=== PATIENT | male | born 1945 | race Caucasian/White ===

== ENCOUNTER 2021-02-16 11:26 | Inpatient (IN) ==
[2021-02-16 12:06] LABS: Basophils % 0.2 %; Hematocrit 44.9 % (37.5-50.1); Hemoglobin 15.1 g/dL (12.9-16.9); Immature Granulocytes % 0.7 % (0-4); Lymphocytes # 0.9 K/mcL (0.6-4.6); Lymphocytes % 14.9 %; Mean Corpuscular HGB Conc 33.6 g/dL (31.6-35.5); Mean Corpuscular Hemoglobin 32.5 pg (28.0-33.3); Mean Corpuscular Volume 96.6 fL (83.0-100.0); Mean Platelet Volume 9.9 fL (9.4-12.4); Monocytes # 0.7 K/mcL (0.0-1.3); Monocytes % 12.1 %; Neutrophils # 4.1 K/mcL (1.6-8.9); Platelet Count 157 K/mcL (140-400); Red Blood Count 4.65 M/mcL (4.19-5.50); Red Cell Distribution Width 12.2 % (11.5-14.5); Segmented Neutrophils % 72.1 %; White Blood Count 5.7 K/mcL (4.3-11.1)
[2021-02-16 12:29] LABS: Alanine Aminotransferase 41 Units/L (7-52); Albumin 3.4 g/dL (3.5-5.7); Albumin/Globulin Ratio 1.2 (1.1-2.2); Alkaline Phosphatase 65 Units/L (34-104); Aspartate Amino Transferase 51 Units/L (13-39); BUN/Creatinine Ratio 24 (6-26); Bilirubin,Direct 0.2 mg/dL (0.0-0.2); Bilirubin,Indirect 0.4 mg/dL (0.0-1.0); Bilirubin,Total 0.6 mg/dL (0.3-1.0); Blood Urea Nitrogen 29 mg/dL (8-23); C-Reactive Protein 55 mg/L (Less than 10); Calcium 8.7 mg/dL (8.6-10.3); Carbon Dioxide 30 mEq/L (23-29); Chloride 102 mEq/L (98-107); Globulin 2.9 g/dL (2.4-3.5); Glucose 93 mg/dL (70-105); Lactate Dehydrogenase 230 Units/L (140-271); Magnesium 1.9 mg/dL (1.6-2.6); Osmolality,Calculated 294 (280-300); Phosphorous 3.4 mg/dL (2.7-4.5); Potassium 3.6 mEq/L (3.5-5.1); Sodium 139 mEq/L (136-145); Total Protein 6.3 g/dL (6.4-8.9); eGFR For African Americans > 60 (> 60); eGFR For Non-African Americans 58 (> 60)
[2021-02-16 12:31] LABS: Troponin I < 0.03 ng/mL (< 0.04)
[2021-02-16] MEDS ORDERED: Piperacillin/Tazobactam 3.375 GM in 0.9 % Sodium Chloride Mini Bag 100 ML IVPB ONE (13:08)
[2021-02-16] MEDS ORDERED: Vancomycin 1,250 MG/262.5 ML IV.SOLN IVPB ONE (13:08)
[2021-02-16] MEDS ORDERED: Ondansetron 4 MG/2 ML VIAL IVP PRN (13:24)
[2021-02-16] MEDS ORDERED: Naloxone 0.4 MG/ML INJ IVP PRN (13:24)
[2021-02-16] MEDS ORDERED: Ipratropium Neb 0.5 MG NEBULIZER IH PRN (13:26)
[2021-02-16] MEDS ORDERED: Albuterol 2.5 MG/3 ML NEBULIZER IH PRN (13:26)
[2021-02-16 13:33] LABS: Ferritin > 1500 ng/mL (20-250)
[2021-02-16] MEDS ORDERED: Ringers Solution, Lactated 500 ML IVC SCH (14:15)
[2021-02-16] MEDS ORDERED: Remdesivir 200 MG in 0.9 % Sodium Chloride 100 ML IVPB ONE (15:00)
[2021-02-16 16:33] LABS: ABG Base Excess 3 mEq/L (-2 to 3); ABG HCO3 28 mEq/L (21-27); ABG Oxygen Saturation 93 % (95-98); ABG PCO2 40 mmHg (35-45); ABG PH 7.45 pH Units (7.32-7.45); ABG PO2 66 mmHg (85-104); ABG TCO2 29 mEq/L (20-26)
[2021-02-16] MEDS ORDERED: *HR* Heparin 5,000 UNIT/ML VIAL SQ SCH (18:00)
[2021-02-16] MEDS ORDERED: Doxycycline 100 MG in 0.9 % Sodium Chloride Mini Bag 100 ML IVPB SCH (18:00)
[2021-02-17] MEDS: *HR* Enoxaparin 40 MG/0.4 ML SYRINGE SQ SCH (05:18)
[2021-02-17 06:57] LABS: Basophils % 0.1 %; Eosinophils % 0.4 %; Hematocrit 41.4 % (37.5-50.1); Hemoglobin 14.5 g/dL (12.9-16.9); Immature Granulocytes % 0.8 % (0-4); Lymphocytes % 12.9 %; Mean Corpuscular Hemoglobin 33.1 pg (28.0-33.3); Mean Corpuscular Volume 94.5 fL (83.0-100.0); Mean Platelet Volume 10.4 fL (9.4-12.4); Monocytes # 0.8 K/mcL (0.0-1.3); Monocytes % 11.3 %; Neutrophils # 5.5 K/mcL (1.6-8.9); Platelet Count 173 K/mcL (140-400); Red Blood Count 4.38 M/mcL (4.19-5.50); Red Cell Distribution Width 11.9 % (11.5-14.5); Segmented Neutrophils % 74.5 %; White Blood Count 7.4 K/mcL (4.3-11.1)
[2021-02-17 07:09] LABS: Alanine Aminotransferase 36 Units/L (7-52); Albumin 3.1 g/dL (3.5-5.7); Albumin/Globulin Ratio 1.2 (1.1-2.2); Alkaline Phosphatase 60 Units/L (34-104); Aspartate Amino Transferase 42 Units/L (13-39); Bilirubin,Direct 0.1 mg/dL (0.0-0.2); Bilirubin,Indirect 0.5 mg/dL (0.0-1.0); Bilirubin,Total 0.6 mg/dL (0.3-1.0); Globulin 2.6 g/dL (2.4-3.5); Total Protein 5.7 g/dL (6.4-8.9)
[2021-02-17 08:18] LABS: BUN/Creatinine Ratio 30 (6-26); Blood Urea Nitrogen 26 mg/dL (8-23); Calcium 8.4 mg/dL (8.6-10.3); Carbon Dioxide 29 mEq/L (23-29); Chloride 102 mEq/L (98-107); Glucose 90 mg/dL (70-105); Osmolality,Calculated 292 (280-300); Potassium 3.6 mEq/L (3.5-5.1); Sodium 139 mEq/L (136-145); eGFR For African Americans > 60 (> 60); eGFR For Non-African Americans > 60 (> 60)
[2021-02-17] MEDS ORDERED: Isovue-370 500 ML BOTTLE IVP ONE (09:19)
[2021-02-17 13:04] LABS: C-Reactive Protein 44 mg/L (Less than 10)
[2021-02-17] MEDS: risperiDONE 0.25 MG TABLET PO SCH ×2 (13:06)
[2021-02-17] MEDS: Ascorbic Acid 500 MG TABLET PO SCH (13:06)
[2021-02-17] MEDS: Furosemide 20 MG/2 ML VIAL IVP SCH (13:07)
[2021-02-17 14:30] LABS: Bilirubin,Urine Negative (Negative); Blood,Urine Negative (Negative); Clarity,Urine Clear (Clear); Color,Urine Light-Yellow (Yellow); Glucose,Urine (UA) Normal (Normal); Ketones,Urine Trace mg/dL (Negative); Leukocyte Esterase,Urine Negative (Negative); Nitrite,Urine Negative (Negative); Protein,Urine Trace mg/dL (Neg-Trace); Specific Gravity,Urine > 1.030 (1.010-1.025); Urobilinogen,Urine Normal (Normal)
[2021-02-17] MEDS: Remdesivir 100 MG in 0.9 % Sodium Chloride 100 ML IVPB SCH (16:14)
[2021-02-17] MEDS: Valproic Acid 250 MG CAPSULE PO SCH (20:20)
[2021-02-18] MEDS: *HR* Enoxaparin 40 MG/0.4 ML SYRINGE SQ SCH (06:08)
[2021-02-18 08:54] LABS: Basophils % 0.5 %; Eosinophils % 0.5 %; Hematocrit 43.1 % (37.5-50.1); Hemoglobin 14.8 g/dL (12.9-16.9); Immature Granulocytes % 1.1 % (0-4); Lymphocytes # 0.9 K/mcL (0.6-4.6); Lymphocytes % 14.4 %; Mean Corpuscular HGB Conc 34.3 g/dL (31.6-35.5); Mean Corpuscular Hemoglobin 32.2 pg (28.0-33.3); Mean Corpuscular Volume 93.7 fL (83.0-100.0); Mean Platelet Volume 10.2 fL (9.4-12.4); Monocytes # 0.8 K/mcL (0.0-1.3); Monocytes % 12.4 %; Neutrophils # 4.4 K/mcL (1.6-8.9); Platelet Count 168 K/mcL (140-400); Segmented Neutrophils % 71.1 %; White Blood Count 6.1 K/mcL (4.3-11.1)
[2021-02-18] MEDS: Valproic Acid 250 MG CAPSULE PO SCH ×2 (09:20→21:15)
[2021-02-18] MEDS: risperiDONE 0.25 MG TABLET PO SCH ×2 (09:20)
[2021-02-18] MEDS: Ascorbic Acid 500 MG TABLET PO SCH (09:21)
[2021-02-18] MEDS: Furosemide 20 MG/2 ML VIAL IVP SCH (09:21)
[2021-02-18] MEDS: allopurinoL 300 MG TABLET PO SCH (09:42)
[2021-02-18 11:28] LABS: Alanine Aminotransferase 40 Units/L (7-52); Albumin/Globulin Ratio 1.1 (1.1-2.2); Alkaline Phosphatase 64 Units/L (34-104); Aspartate Amino Transferase 43 Units/L (13-39); BUN/Creatinine Ratio 31 (6-26); Bilirubin,Total 0.7 mg/dL (0.3-1.0); Blood Urea Nitrogen 27 mg/dL (8-23); Calcium 8.4 mg/dL (8.6-10.3); Carbon Dioxide 24 mEq/L (23-29); Chloride 102 mEq/L (98-107); Globulin 2.7 g/dL (2.4-3.5); Glucose 94 mg/dL (70-105); Lactate Dehydrogenase 225 Units/L (140-271); Osmolality,Calculated 295 (280-300); Potassium 3.1 mEq/L (3.5-5.1); Sodium 140 mEq/L (136-145); Total Protein 5.7 g/dL (6.4-8.9); eGFR For African Americans > 60 (> 60); eGFR For Non-African Americans > 60 (> 60)
[2021-02-18] MEDS ORDERED: Haloperidol Lactate 5 MG/ML VIAL IVP ONE (14:53)
[2021-02-18] MEDS ORDERED: Dexamethasone Sodium Phos/PF 10 MG/ML VIAL IVP ONE (15:01)
[2021-02-18] MEDS: Remdesivir 100 MG in 0.9 % Sodium Chloride 100 ML IVPB SCH (15:19)
[2021-02-18 15:22] LABS: Ferritin 1434 ng/mL (20-250)
[2021-02-19 02:31] LABS: Basophils % 0.3 %; Hematocrit 42.9 % (37.5-50.1); Hemoglobin 14.8 g/dL (12.9-16.9); Immature Granulocytes % 1.1 % (0-4); Lymphocytes # 0.6 K/mcL (0.6-4.6); Lymphocytes % 8.3 %; Mean Corpuscular HGB Conc 34.5 g/dL (31.6-35.5); Mean Corpuscular Hemoglobin 32.2 pg (28.0-33.3); Mean Corpuscular Volume 93.5 fL (83.0-100.0); Mean Platelet Volume 10.6 fL (9.4-12.4); Monocytes # 0.6 K/mcL (0.0-1.3); Monocytes % 8.8 %; Neutrophils # 5.9 K/mcL (1.6-8.9); Platelet Count 212 K/mcL (140-400); Red Blood Count 4.59 M/mcL (4.19-5.50); Red Cell Distribution Width 11.9 % (11.5-14.5); Segmented Neutrophils % 81.5 %; White Blood Count 7.2 K/mcL (4.3-11.1)
[2021-02-19 02:51] LABS: Alanine Aminotransferase 48 Units/L (7-52); Albumin 3.1 g/dL (3.5-5.7); Albumin/Globulin Ratio 1.1 (1.1-2.2); Alkaline Phosphatase 67 Units/L (34-104); Aspartate Amino Transferase 42 Units/L (13-39); BUN/Creatinine Ratio 34 (6-26); Bilirubin,Total 0.6 mg/dL (0.3-1.0); Blood Urea Nitrogen 32 mg/dL (8-23); Calcium 8.5 mg/dL (8.6-10.3); Carbon Dioxide 28 mEq/L (23-29); Chloride 102 mEq/L (98-107); Globulin 2.8 g/dL (2.4-3.5); Glucose 123 mg/dL (70-105); Osmolality,Calculated 296 (280-300); Potassium 3.5 mEq/L (3.5-5.1); Sodium 139 mEq/L (136-145); Total Protein 5.9 g/dL (6.4-8.9); eGFR For African Americans > 60 (> 60); eGFR For Non-African Americans > 60 (> 60)
[2021-02-19] MEDS: *HR* Enoxaparin 40 MG/0.4 ML SYRINGE SQ SCH (05:46)
[2021-02-19] MEDS: Valproic Acid 250 MG CAPSULE PO SCH ×2 (08:22→21:57)
[2021-02-19] MEDS: Ascorbic Acid 500 MG TABLET PO SCH (08:23)
[2021-02-19] MEDS: risperiDONE 0.25 MG TABLET PO SCH ×2 (08:23)
[2021-02-19] MEDS: allopurinoL 300 MG TABLET PO SCH (08:23)
[2021-02-19] MEDS: Dexamethasone Sodium Phos/PF 10 MG/ML VIAL IVP SCH (08:29)
[2021-02-19] MEDS: Furosemide 20 MG/2 ML VIAL IVP SCH (08:30)
[2021-02-19] MEDS: Remdesivir 100 MG in 0.9 % Sodium Chloride 100 ML IVPB SCH (15:18)
[2021-02-20 03:21] LABS: Basophils % 0.2 %; Eosinophils % 0.2 %; Hematocrit 42.4 % (37.5-50.1); Hemoglobin 14.5 g/dL (12.9-16.9); Immature Granulocytes % 1.2 % (0-4); Lymphocytes % 11.5 %; Mean Corpuscular HGB Conc 34.2 g/dL (31.6-35.5); Mean Corpuscular Hemoglobin 32.2 pg (28.0-33.3); Mean Platelet Volume 10.3 fL (9.4-12.4); Monocytes # 0.7 K/mcL (0.0-1.3); Monocytes % 8.2 %; Neutrophils # 6.5 K/mcL (1.6-8.9); Platelet Count 219 K/mcL (140-400); Red Blood Count 4.51 M/mcL (4.19-5.50); Red Cell Distribution Width 11.9 % (11.5-14.5); Segmented Neutrophils % 78.7 %; White Blood Count 8.3 K/mcL (4.3-11.1)
[2021-02-20 03:38] LABS: BUN/Creatinine Ratio 33 (6-26); Blood Urea Nitrogen 33 mg/dL (8-23); Calcium 8.6 mg/dL (8.6-10.3); Carbon Dioxide 32 mEq/L (23-29); Chloride 101 mEq/L (98-107); Glucose 98 mg/dL (70-105); Osmolality,Calculated 299 (280-300); Potassium 2.9 mEq/L (3.5-5.1); Sodium 141 mEq/L (136-145); eGFR For African Americans > 60 (> 60); eGFR For Non-African Americans > 60 (> 60)
[2021-02-20] MEDS ORDERED: Potassium Chloride 40 MEQ, Lidocaine 1% 2 ML in 0.9 % Sodium Chloride 500 ML IVPB ONE (05:15)
[2021-02-20] MEDS: *HR* Enoxaparin 40 MG/0.4 ML SYRINGE SQ SCH (06:21)
[2021-02-20] MEDS: Furosemide 20 MG/2 ML VIAL IVP SCH (09:04)
[2021-02-20] MEDS: Dexamethasone Sodium Phos/PF 10 MG/ML VIAL IVP SCH (09:04)
[2021-02-20] MEDS: risperiDONE 0.25 MG TABLET PO SCH ×2 (09:05)
[2021-02-20] MEDS: allopurinoL 300 MG TABLET PO SCH (09:06)
[2021-02-20] MEDS: Ascorbic Acid 500 MG TABLET PO SCH (09:06)
[2021-02-20] MEDS: Valproic Acid 250 MG CAPSULE PO SCH ×2 (09:06→19:59)
[2021-02-20 15:58] LABS: Alanine Aminotransferase 48 Units/L (7-52); Albumin 3.1 g/dL (3.5-5.7); Albumin/Globulin Ratio 1.1 (1.1-2.2); Alkaline Phosphatase 70 Units/L (34-104); Aspartate Amino Transferase 46 Units/L (13-39); Bilirubin,Direct 0.2 mg/dL (0.0-0.2); Bilirubin,Indirect 0.4 mg/dL (0.0-1.0); Bilirubin,Total 0.6 mg/dL (0.3-1.0); Globulin 2.9 g/dL (2.4-3.5)
[2021-02-20] MEDS: Remdesivir 100 MG in 0.9 % Sodium Chloride 100 ML IVPB SCH (16:00)
[2021-02-21 05:24] VITALS: BP 106/87; TEMP 98.1
[2021-02-21] MEDS: *HR* Enoxaparin 40 MG/0.4 ML SYRINGE SQ SCH (05:31)
[2021-02-21 06:16] LABS: Basophils % 0.3 %; Eosinophils # 0.1 K/mcL (0.0-0.6); Eosinophils % 0.9 %; Hematocrit 43.5 % (37.5-50.1); Hemoglobin 14.7 g/dL (12.9-16.9); Lymphocytes # 0.8 K/mcL (0.6-4.6); Lymphocytes % 10.2 %; Mean Corpuscular HGB Conc 33.8 g/dL (31.6-35.5); Mean Corpuscular Hemoglobin 32.5 pg (28.0-33.3); Mean Platelet Volume 10.4 fL (9.4-12.4); Monocytes # 0.6 K/mcL (0.0-1.3); Monocytes % 7.9 %; Neutrophils # 6.3 K/mcL (1.6-8.9); Platelet Count 225 K/mcL (140-400); Red Blood Count 4.53 M/mcL (4.19-5.50); Segmented Neutrophils % 79.7 %
[2021-02-21 06:38] LABS: BUN/Creatinine Ratio 33 (6-26); Blood Urea Nitrogen 33 mg/dL (8-23); Calcium 8.8 mg/dL (8.6-10.3); Carbon Dioxide 30 mEq/L (23-29); Chloride 105 mEq/L (98-107); Glucose 94 mg/dL (70-105); Osmolality,Calculated 303 (280-300); Potassium 3.4 mEq/L (3.5-5.1); Sodium 143 mEq/L (136-145); eGFR For African Americans > 60 (> 60); eGFR For Non-African Americans > 60 (> 60)
[2021-02-21] MEDS: Furosemide 20 MG/2 ML VIAL IVP SCH (12:30)
[2021-02-21] MEDS: Dexamethasone Sodium Phos/PF 10 MG/ML VIAL IVP SCH (12:30)
[2021-02-21] MEDS: Valproic Acid 250 MG CAPSULE PO SCH (12:30)
[2021-02-21] MEDS: Ascorbic Acid 500 MG TABLET PO SCH (12:31)
[2021-02-21] MEDS: risperiDONE 0.25 MG TABLET PO SCH ×2 (12:31)
[2021-02-21] MEDS: allopurinoL 300 MG TABLET PO SCH (12:31)
[2021-02-21 16:30] VITALS: PULSE 59; O2SAT 91
[2021-02-24 03:12] LABS: ABG Base Excess 4 mEq/L (-2 to 3); ABG HCO3 27 mEq/L (21-27); ABG Oxygen Saturation 86 % (95-98); ABG PCO2 34 mmHg (35-45); ABG PO2 46 mmHg (85-104); ABG TCO2 28 mEq/L (20-26)
== END 2021-02-21 17:04 | DRG 177 ==
LOC: 2NENU 11:26 → EMEROOARM 11:26 → 2NENU 14:59 → SUATTDRO 02-17 12:15
PROVIDERS: ADMIT Internal Medicine; ATTEND Internal Medicine

== ENCOUNTER 2021-02-24 02:30 | Observation (INO) ==
[2021-02-24 03:08] LABS: VBG HCO3 31 mEq/L (21-27); VBG PCO2 57 mmHg (41-51); VBG PH 7.35 pH Units (7.32-7.42); VBG PO2 24 mmHg (25-50)
[2021-02-24 03:11] LABS: Hematocrit 50.3 % (37.5-50.1); Hemoglobin 16.3 g/dL (12.9-16.9); Lymphocytes # 1.1 K/mcL (0.6-4.6); Lymphocytes % 12.1 %; Mean Corpuscular HGB Conc 32.4 g/dL (31.6-35.5); Mean Corpuscular Volume 98.8 fL (83.0-100.0); Mean Platelet Volume 10.1 fL (9.4-12.4); Neutrophils # 7.5 K/mcL (1.6-8.9); Platelet Count 275 K/mcL (140-400); Red Blood Count 5.09 M/mcL (4.19-5.50); Red Cell Distribution Width 12.4 % (11.5-14.5); Segmented Neutrophils % 79.8 %; White Blood Count 9.4 K/mcL (4.3-11.1)
[2021-02-24 03:12] LABS: Basophils % 0.2 %; Eosinophils # 0.1 K/mcL (0.0-0.6); Eosinophils % 1.4 %; Monocytes # 0.5 K/mcL (0.0-1.3); Monocytes % 5.5 %
[2021-02-24 03:30] LABS: BUN/Creatinine Ratio 23 (6-26); Blood Urea Nitrogen 26 mg/dL (8-23); Calcium 9.3 mg/dL (8.6-10.3); Carbon Dioxide 29 mEq/L (23-29); Chloride 106 mEq/L (98-107); Glucose 109 mg/dL (70-105); Osmolality,Calculated 307 (280-300); Potassium 3.8 mEq/L (3.5-5.1); Sodium 146 mEq/L (136-145); Troponin I < 0.03 ng/mL (< 0.04); eGFR For African Americans > 60 (> 60); eGFR For Non-African Americans > 60 (> 60)
[2021-02-24] MEDS ORDERED: 0.9 % Sodium Chloride 1,000 ML IV ONE (04:37)
[2021-02-24] MEDS ORDERED: cefTRIAXone 1,000 MG in Water for inj. (sterile) 10 ML IVP ONE (05:51)
[2021-02-24] MEDS ORDERED: Azithromycin 500 MG in 0.9 % Sodium Chloride 250 ML IVPB SCH (09:00)
[2021-02-24] MEDS ORDERED: Ondansetron 4 MG/2 ML VIAL IVP PRN (09:02)
[2021-02-24] MEDS ORDERED: Naloxone 0.4 MG/ML INJ IVP PRN (09:02)
[2021-02-24] MEDS ORDERED: Ipratropium Neb 0.5 MG NEBULIZER IH PRN (09:10)
[2021-02-24] MEDS ORDERED: Albuterol 2.5 MG/3 ML NEBULIZER IH PRN (09:10)
[2021-02-24] MEDS ORDERED: cefTRIAXone 1,000 MG in 0.9 % Sodium Chloride Mini Bag 100 ML IVPB SCH (11:00)
[2021-02-24] MEDS: 0.9 % Sodium Chloride 1,000 ML IVC SCH (11:19)
[2021-02-24] MEDS: *HR* Heparin 5,000 UNIT/ML VIAL SQ SCH ×3 (14:20→20:52)
[2021-02-24] MEDS: Valproic Acid 250 MG CAPSULE PO SCH (20:37)
[2021-02-25] MEDS: *HR* Heparin 5,000 UNIT/ML VIAL SQ SCH ×2 (05:55→16:26)
[2021-02-25 05:58] LABS: Basophils % 0.3 %; Eosinophils # 0.1 K/mcL (0.0-0.6); Hematocrit 41.3 % (37.5-50.1); Hemoglobin 14.1 g/dL (12.9-16.9); Immature Granulocytes % 0.7 % (0-4); Lymphocytes % 13.7 %; Mean Corpuscular HGB Conc 34.1 g/dL (31.6-35.5); Mean Corpuscular Hemoglobin 33.1 pg (28.0-33.3); Mean Corpuscular Volume 96.9 fL (83.0-100.0); Mean Platelet Volume 10.4 fL (9.4-12.4); Monocytes # 0.5 K/mcL (0.0-1.3); Monocytes % 7.4 %; Neutrophils # 5.5 K/mcL (1.6-8.9); Platelet Count 161 K/mcL (140-400); Red Blood Count 4.26 M/mcL (4.19-5.50); Red Cell Distribution Width 12.3 % (11.5-14.5); Segmented Neutrophils % 76.9 %; White Blood Count 7.2 K/mcL (4.3-11.1)
[2021-02-25] MEDS: 0.9 % Sodium Chloride 1,000 ML IVC SCH (05:59)
[2021-02-25 06:10] LABS: BUN/Creatinine Ratio 24 (6-26); Blood Urea Nitrogen 21 mg/dL (8-23); Calcium 8.5 mg/dL (8.6-10.3); Carbon Dioxide 28 mEq/L (23-29); Chloride 110 mEq/L (98-107); Glucose 87 mg/dL (70-105); Osmolality,Calculated 302 (280-300); Potassium 3.4 mEq/L (3.5-5.1); Sodium 145 mEq/L (136-145); eGFR For African Americans > 60 (> 60); eGFR For Non-African Americans > 60 (> 60)
[2021-02-25] MEDS: Valproic Acid 250 MG CAPSULE PO SCH (08:18)
[2021-02-25] MEDS ORDERED: Chlorhexidine Rinse 15 ML MOUTHWASH MM SCH (09:00)
[2021-02-25] MEDS ORDERED: Ascorbic Acid 500 MG TABLET PO SCH (09:00)
[2021-02-25] MEDS ORDERED: risperiDONE 0.25 MG TABLET PO SCH ×2 (09:00)
[2021-02-25] MEDS ORDERED: allopurinoL 300 MG TABLET PO SCH (09:00)
[2021-02-25 10:25] VITALS: BP 121/60; PULSE 65; TEMP 98.4; O2SAT 91
== END 2021-02-25 19:13 ==
LOC: EMEROOARM 02:30 → 2NENU 02:30 → SUATTDRO 09:09 → 2NENU 10:33
PROVIDERS: ADMIT Family Medicine; ATTEND Internal Medicine